=== PATIENT | male | born 1970 | race Caucasian/White ===

== ENCOUNTER 2020-02-26 05:48 | Emergency (ER) | payer BC ==
--- NOTE | 2020-02-26 06:32 | EDM.PDOC ---
ED HPI GENERAL MEDICAL PROBLEM - General Chief Complaint: Cardiovascular Problem Stated Complaint: RACING HEART/CHEST PAIN Time Seen by Provider: 02/26/20 06:08 Source of Information: Reports: Patient History Limitations: Reports: No Limitations - History of Present Illness INITIAL COMMENTS - FREE TEXT/NARRATIVE: Mr. Fournier is a very pleasant 49-year-old gentleman with a past medical history significant for atrial fibrillation, experienced in 2016, at which time he was hospitalized at [facility]. He states that at some point his atrial fibrillation resolved, and when his prescriptions for metoprolol and, likely, an anticoagulant, , he simply did not refill them, and he did not follow-up with his Steam [employer]. He has not had any issues with atrial fibrillation since. He now presents to the ED stating that he developed the sensation of a rapid regular heartbeat 2 days ago, 02/24/2020. He then developed upper midline chest tightness around 22:30 last evening, while watching football. He has not identified any modifiers of his chest tightness. He states that the palpitations are distinctly different than when he experienced atrial fibrilla tion, where his heartbeat was "all over the place", and that he has not previously experienced similar chest tightness. No associated dyspnea, nausea, diaphoresis, or sense of impending doom. He did not take any medications to treat any of his symptoms. Here in the ED, the patient states that he still feels like his heart is beating rapidly and regularly. He states that his chest tightness is still present, although quite mild. His initial BP is found to be modestly elevated at 149/107, with a mild tachycardia of 102 bpm, although down to 90 bpm on the monitor when I evaluated him. He is afebrile, saturating 95% on room air. Prior to Tuesday, the patient denies having a recent fever, chills, sore throat, ear pain, nasal or sinus congestion, cough, dyspnea, chest pain, palpitations, n ausea, vomiting, constipation, diarrhea, abdominal pain, urinary symptoms, recent weight gain or weight loss, recent bloody bowel movements or black bowel movements, recent joint aches, headaches, or rashes. The patient's PCP is Dr. Tino Stanley, in [place]. He does not recall the name of the Steam Hammer Operator that he saw at [facility]. He has not received an influenza vaccine this season, and declined an offer to receive one here in the ED. Bilateral Chest Pain Score (Numeric/FACES): 1 - Related Data Allergies Allergy/AdvReac Type Severity Reaction Status Date / Time No Known Allergies Allergy Verified 02/26/20 05:53 Past Medical History HEENT History: Reports: Impaired Vision (wears glasses) Cardiovascular History: Reports: Afib (paroxysmal, untreated), High Cholesterol (hypertriglyceridemia) Endocrine/Metabolic History: Reports: Obesity/BMI 30+ - Past Surgical History Musculoskeletal Surgical History: Reports: Shoulder Surgery (right, arthroscopic) Social & Family History - Tobacco Use Tobacco Use Status *Q: Former Tobacco User Years of Tobacco use: 25 Packs/Tins Daily: 1 Month/Year Tobacco Last Used: Quit 2009 - Alcohol Use Alcohol Use History: Yes Alcohol Use Frequency: Socially (occasionally to excess) - Recreational Drug Use Recreational Drug Use: Yes Drug Use in Last 12 Months: Yes Recreational Drug Type: Reports: Marijuana/Hashish (smokes nightly) - Living Situation & Occupation Living situation: Reports: , with Spouse, with Family (1 child) 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 ED EXAM, GENERAL - Physical Exam Exam: See Below Exam Limited By: No Limitations General Appearance: Alert, WD/WN, No Apparent Distress Eye Exam: Bilateral Eye: EOMI, Normal Inspection Ears: Normal External Exam, Hearing Grossly Normal Nose: Normal Inspection Throat/Mouth: Normal Inspection, Normal Lips, Normal Voice, No Airway Compromise Head: Atraumatic, Normocephalic Neck: Normal Inspection, Full Range of Motion Respiratory/Chest: No Respiratory Distress, Lungs Clear, Normal Breath Sounds, No Accessory Muscle Use, Chest Non-Tender, Other (Having the patient press his hands together with outstretched arms in front of his chest may increase his chest tightness) Cardiovascular: Normal Peripheral Pulses, Regular Rate, Rhythm, No Edema, No Gallop, No JVD, No Murmur, No Rub Peripheral Pulses: 3+: Radial (L), Radial (R) GI/Abdominal: Normal Bowel Sounds, Soft, Non-Tender, No Organomegaly, No Distention, No Abnormal Bruit, No Mass Back Exam: Normal Inspection, Full Range of Motion, NT Extremities: Normal Inspection, Normal Range of Motion, No Pedal Edema, Normal Capillary Refill Neurological: Alert, Oriented, Normal Cognition, No Motor/Sensory Deficits Psychiatric: Normal Affect Skin Exam: Warm, Dry, Intact, Normal Color, No Rash #1 Interpretation EKG Date: 02/26/20 Time: 05:56 Rhythm: NSR Rate (Beats/Min): 99 [place]: Normal P-Wave: Present QRS: Normal ST-T: Normal QT: Normal Comparison: NA - No Prior EKG Course - Vital Signs Last Recorded V/S: Last Vital Signs Temp 36.8 C 02/26/20 05:53 Pulse 102 H 02/26/20 05:53 Resp 15 02/26/20 05:53 BP 149/107 H 02/26/20 05:53 Pulse Ox 95 02/26/20 05:53 - Orders/Labs/Meds Orders: Active Orders 24 hr Category Date Time Status EKG Documentation Completion [RC] STAT Care 02/26/20 06:09 Active Chest 2V [CR] Stat Exams 02/26/20 06:22 Taken CBC WITH MANUAL DIFF [HEME] Stat Lab 02/26/20 05:58 Results Labs: Laboratory Tests 02/26/20 02/26/20 02/26/20 Range/Units 05:58 05:58 05:58 WBC 7.07 (4.23-9.07) K/mm3 RBC 5.44 (4.63-6.08) M/mm3 Hgb 17.0 (13.7-17.5) gm/dl Hct 48.3 (40.1-51.0) % MCV 88.8 (79.0-92.2) fl MCH 31.3 (25.7-32.2) pg MCHC 35.2 (32.2-35.5) g/dl RDW Std Deviation 42.1 (35.1-43.9) fL Plt Count 260 (163-337) K/mm3 MPV 11.7 (9.4-12.3) fl D-Dimer, Quantitative < 0.19 L (0.19-0.50) mg/L Sodium 137 (136-145) mEq/L Potassium 4.5 (3.5-5.1) mEq/L Chloride 103 (98-107) mEq/L Carbon Dioxide 19 L (21-32) mEq/L Anion Gap 19.5 H (5-15) BUN 20 H (7-18) mg/dL Creatinine 1.0 (0.7-1.3) mg/dL Est Cr Clr Drug Dosing 93.08 mL/min Estimated GFR (MDRD) > 60 (>60) mL/min BUN/Creatinine Ratio 20.0 H (14-18) Glucose 170 H (74-106) mg/dL Calcium 8.1 L (8.5-10.1) mg/dL Total Bilirubin 0.8 (0.2-1.0) mg/dL AST TNP ALT TNP Alkaline Phosphatase 94 (46-116) U/L Troponin I < 0.017 (0.00-0.056) ng/mL Total Protein TNP Albumin 3.9 (3.4-5.0) g/dl Globulin 3.6 gm/dL Albumin/Globulin Ratio 1.1 (1-2) - Re-Assessments/Exams Free Text/Narrative Re-Assessment/Exam: 02/26/20 06:24 As above, the patient developed regular rapid palpitations 2 days ago, then upper midline chest tightness last evening. Here in the ED, the patient still feels like his heart is racing, although his ECG indicates that he is in a normal sinus rhythm (at 99 bpm), and his cafeteria monitor indicates a heart rate of 90 bpm. His chest tightness is still present, although mild. He has no other symptoms, and his physical exam is unremarkable. It does not sound like the patient has been in atrial fibrillation recently. I am most concerned about a PE. I have ordered a work-up that includes blood tests and a chest x-ray. 02/26/20 06:51 2-view chest radiograph is read by [facility] as "Probable nipple shadow rather than nodule over the left base, but follow-up with nipple markers if CT is not performed." The patient's CBC is unremarkable. His CMP is remarkable for a bicarbonate slightly depressed at 19.0 with an anion gap slightly elevated at 19.5. His BUN is slightly elevated at 20 with a Cr within normal limits at 1.0. His blood glucose is elevated at 170, with the remainder of his CMP being unremarkable. His troponin is undetectably low. His D-dimer is undetectably low. 02/26/20 06:57 Test results discussed with the patient. As above, today's work-up is unremarkable, other than his elevated blood glucose. At present, his heart rate is down to 87. I cannot explain the symptoms that he had, but they do not appear to be due to anything serious, such as an KS or PE. The patient states that he has an appointment to see his PCP this coming 02/29/2020. I r ecommended that he return to the ED if his symptoms worsen in the meantime, otherwise, to discuss his hyperglycemia at that time. Departure - Departure Time of Disposition: 06:59 Disposition: Home, Self-Care 01 Condition: Good Clinical Impression: Rapid palpitations, Hyperglycemia, Chest pain of uncertain etiology Referrals: Tino Stanley MD [Primary Care Provider] - Forms: ED Department Discharge Additional Instructions: You were seen in the emergency room after developing rapid palpitations on Tuesday, then upper chest tightness last night. Work-up in the ER included blood tests, chest x-ray, and an ECG. Your blood test found your blood sugar to be elevated at 170. This indicates that you either have diabetes or prediabetes. The remainder of your work-up was unremarkable. You have not suffered a heart attack. You do not have a blood clot in your lungs. The cause of your rapid palpitations is not known, but does not appear to be due to anything serious. We recommend that you follow-up with your PCP, Dr. Tino Stanley, at your previously scheduled appointment this coming 02/29/2020. At that time, you need to discuss your high blood sugar, for further evaluation. If, before then, you develop any significant symptoms, including worsening of your chest discomfort, or new symptoms, please do not hesitate to return to the ER for reevaluation. Sepsis Event Note (ED) - Evaluation Sepsis Screening Result: No Definite Risk - Focused Exam Vital Signs: Vital Signs Temp Pulse Resp BP Pulse Ox 02/26/20 05:53 36.8 C 102 H 15 149/107 H 95 - My Orders Last 24 Hours: My Active Orders 02/26/20 05:58 CBC WITH MANUAL DIFF [HEME] Stat 02/26/20 06:09 EKG Documentation Completion [RC] STAT 02/26/20 06:22 Chest 2V [CR] Stat - Assessment/Plan Last 24 Hours: My Active Orders 02/26/20 05:58 CBC WITH MANUAL DIFF [HEME] Stat 02/26/20 06:09 EKG Documentation Completion [RC] STAT 02/26/20 06:22 Chest 2V [CR] Stat
--- NOTE | 2020-02-26 08:53 | CR ---
PROCEDURE INFORMATION: Exam: XR Chest, 2 Views Exam date and time: 02/26/2020 6:34 AM Age: 49 years old Clinical indication: Pain; Other: Central tightness; Other: Palpitations TECHNIQUE: Imaging protocol: XR of the chest Views: 2 views. COMPARISON: No relevant prior studies available. FINDINGS: Lungs: There is probably a nipple shadow rather than nodule projecting over the left base. The lungs are otherwise clear. Pleural space: Unremarkable. No pleural effusion. No pneumothorax. Heart/Mediastinum: Unremarkable. No cardiomegaly. Bones/joints: Degenerative changes involve the spine. IMPRESSION: Probable nipple shadow rather than nodule over the left base, but follow-up with nipple markers if CT is not performed. Thank you for allowing us to participate in the care of your patient. Dictated and Authenticated by: Regino Corral MD 02/26/2020 7:44 AM Central Time ([place] & [place]) [place]
== END 2020-02-26 07:18 | disposition home or self-care (01) ==
LOC: JD.ED 05:48
DX: R00.2 Palpitations (principal); R07.89 Other chest pain; R73.9 Hyperglycemia, unspecified; E66.9 Obesity, unspecified; Z68.31 Body mass index [BMI] 31.0-31.9, adult; Z87.891 Personal history of nicotine dependence
CPT/HCPCS: 36415; 71046; 71046-26; 80053; 84484; 85007; 85027; 85379; 93005; 93010; 99284; 99285-25

== ENCOUNTER 2021-11-02 10:34 | Emergency (ER) | payer BC ==
[2021-11-02] MEDS ORDERED: Diltiazem 50 MG/10 ML SDV IVPUSH ONE ×2 (10:51→11:19)
[2021-11-02] MEDS ORDERED: Sodium Chloride 0.9% 10 ML Syringe FLUSH PRN (10:52)
[2021-11-02] MEDS ORDERED: Sodium Chloride 0.9% 1,000 ML IV SCH (11:00)
[2021-11-02] MEDS ORDERED: Diltiazem 100 MG in Sodium Chloride 0.9% 100 ML IV SCH (11:45)
[2021-11-02] MEDS ORDERED: Aspirin 81 MG Tab.Chew PO ONE (11:54)
[2021-11-02] MEDS ORDERED: Propofol 200 MG/20 ML SDV IVPUSH ONE (12:15)
[2021-11-02] MEDS ORDERED: Diltiazem 120 MG Cap.CD PO ONE (13:15)
== END 2021-11-02 14:34 | disposition home or self-care (01) ==
LOC: JD.ED 10:34
DX: I48.91 Unspecified atrial fibrillation (principal); E66.9 Obesity, unspecified; Z68.28 Body mass index [BMI] 28.0-28.9, adult; Z79.899 Other long term (current) drug therapy
CPT/HCPCS: 36415; 71045; 80053; 81003; 83735; 83880; 84443; 84484; 85025; 85379; 92960; 93005; 96361; 96365; 96376; 99285; A9270; J2704; J3490; J7030; 99284